=== PATIENT | female | born 1960 | race Caucasian/White ===

== ENCOUNTER → 2018-12-05 | Outpatient (CLI) | payer OTHER ==
[~2018-12-05] MED LIST: CANASA1000 MG; CIPRO250 M1; FLAGYL500 MG PO; JUNEL1 EAC1; NORCO 5-325 TA1 EACH PO; PREDNISONE 10 M10 M1 PO; PREDNISONE 5 MG5 MG PO; VICODIN 5-5001 EACH PO; ZOFRAN ODT4 MG PO
== END ==
LOC: ULTRA 10:08
DX: E01.0 Iodine-deficiency related diffuse (endemic) goiter (principal); Z79.899 Other long term (current) drug therapy

== ENCOUNTER → 2020-08-21 | Outpatient (CLI) | payer OTHER ==
--- NOTE | 2020-08-23 18:06 | PATH ---
[facility] [address] [place] [address] PATHOLOGY RPT PROCEDURE Name: MELISSABUSHRA MARISELA Room #: REG EUGENIO Tripp.#: [id number] Admission: 08/21/20 Date of : 56 Discharge: Report #: [id number] Path Case #: [id number] [facility] Accession Number: [id number] . 01 Material submitted: . PART A: sigmoid colon - RANDOM SIGMOID COLON BX PART B: rectum - RANDOM RECTAL BX . 01 Clinical history: . HX ULCERATIVE COLITIS, CONSTIPATION . 02 Diagnosis: A. Large intestinal mucosa, random sigmoid colon, endoscopic biopsy: - Mild chronic active colitis, history of ulcerative colitis. - Negative for dysplasia or malignancy. . B. Large intestine, random rectum, endoscopic biopsy: - Mild chronic active colitis, history of ulcerative colitis. - Negative for dysplasia or malignancy. (IUV:pit; 08/23/2020) QTP 08/23/2020 1613 Local . 02 Electronically signed: . Vanessa Tian MD, Pathologist NPI- [id number] . 01 Gross description: . A. Received in formalin labeled "Bushra Velasquez and random sigmoid colon biopsy". Received are 4 reich brown soft tissue fragments ranging from 0.2-0.4 cm. The specimen is entirely submitted in cassette A1. . B. Received in formalin labeled "Geren, Bushra and random rectal biopsy". Received are 3 reich-brown soft tissue fragments ranging from 0.3-0.5 cm. Specimen is entirely submitted in cassette B1.([facility]; 08/22/2020) [facility] 08/23/2020 1450 Local . 02 Pathologist provided ICD-10: K52.9 . 02 CPT . 508902, [id number] Specimen Comment: A courtesy copy of this report has been sent to [phone] Specimen Comment: Report sent to Performed at: [address] [facility], [place] [id number] MD Aaron Malave MD Phone: [phone] [place] [address] PATHOLOGY RPT PROCEDURE Name: MELISSABUSHRAANGELIA ANTONIO Room #: REG CLStephany Ortez#: [id number] Admission: 08/21/20 Date of : 56 Discharge: Report #: [id number] Path Case #: [id number] Performed at: [address], [place], [place] [id number] MD Vanessa Tian MD Phone: [phone]
--- NOTE | 2020-08-26 15:04 | P ---
Formerly [facility] [place] [address] PROCEDURE REPORT Name: RONALDO TORRES Room #: REG [facility] Neelima#: [id number] Admission: 08/21/20 Attend Phys: Cortez Kaplan Discharge: Date of : 56 Report #: [id number] THIS REPORT FOR: cc: Vaibhav Snyder MD, David A. MD McElhinney, Christian C. MD ~ DOC #: [id number] cc: MD Cortez Pedersen MD DATE OF SERVICE: 08/21/2020 PROCEDURE PERFORMED: Flexible sigmoidoscopy with biopsies. HISTORY OF PRESENT ILLNESS: The patient is a 59-year-old female with a history of ulcerative colitis, recently with difficulty with bowel movements. She has been using hydrocortisone suppositories. She denies any blood in her stools or diarrhea. She has had this problem before when having stress in her life. Last flexible sigmoidoscopy was helpful per the patient. She does have a family history of colon cancer in her grandfather. DESCRIPTION OF PROCEDURE: The risks and benefits of the procedure were explained to the patient, those risks including but not limited to bleeding, perforation and the risk of sedation. She understood these risks and gave informed consent. Sedation was given using propofol per anesthesia. Next, a digital rectal exam was initially performed, which was normal. Next, using a standard Olympus colonoscope, the scope was placed in the patient's anus and advanced under direct vision into the transverse colon. The overall prep was excellent. The transverse colon was normal. The descending and sigmoid colon were all normal. The rectal mucosa was normal. Random biopsies were obtained in the sigmoid and rectum due to the history of ulcerative colitis. On retroflexion, no abnormalities were noted. Close examination of the anal canal showed no stenosis or narrowing. A tiny anal fissure and a small external hemorrhoid was noted. Otherwise normal. No evidence of bleeding. The scope was then withdrawn and the procedure terminated. The patient tolerated the procedure well. IMPRESSION: 1. Small anal fissure. 2. Small external hemorrhoids. 3. Otherwise, normal flexible sigmoidoscopy. RECOMMENDATIONS: 1. Await biopsy results. 2. Continue suppositories. 3. We will discuss possible Analpram with the patient. [address] [address] PROCEDURE REPORT Name: OSVALDORONALDO WILLIAM Room #: REG [facility] Neelima#: [id number] Admission: 08/21/20 Attend Phys: Cortez Kaplan Discharge: Date of : 56 Report #: [id number] Thank you for allowing me to participate in her care. Cortez Rodas MD CCM/ALL <ELECTRONICALLY SIGNED> By: Cortez Rodas MD 08/26/20 1504 1126 2048 Cortez Rodas MD /angie
== END | disposition home or self-care (01) ==
LOC: GI 09:45
PROVIDERS: ATTEND Specialist
DX: K59.00 Constipation, unspecified (principal); K52.9 Noninfective gastroenteritis and colitis, unspecified; K60.2 Anal fissure, unspecified; K64.8 Other hemorrhoids; Z87.19 Personal history of other diseases of the digestive system; Z80.0 Family history of malignant neoplasm of digestive organs
CPT/HCPCS: 62110; 62900